=== PATIENT | female | born 1970 | race Hispanic/Latino ===

== ENCOUNTER 2020-09-05 08:28 | Outpatient (CLI) | payer OTHER ==
--- NOTE | 2020-09-26 14:32 | Magnetic Resonance Report ---
Bilateral breast MR without and with contrast. History: Patient at high risk for breast malignancy based upon genetic susceptibility. Comparison: Outside mammograms 03/14/2020 and 03/09/2019. Technique: Multiplanar multisequence MR images of the breast were obtained before and after the intra venous administration of 16 ml of Clariscan contrast agent. Post processing analysis and review was p erformed on a separate computer workstation. Findings: The breasts are composed of primarily scattered fibroglandular densities. There is mild background pa renchymal enhancement. The presence of multiple scattered bilateral enhancing foci decreases the sens itivity of MRI. No discrete enhancing mass, dominant focus, or other abnormal enhancement is identified within either breast. No abnormal axillary or internal mammary lymph nodes. Impression: No evidence of breast malignancy. Patient will be due for annual bilateral mammogram in March 2021. Recommend screening breast MRI in one year given patient's high risk for breast malignancy. BIRADS 1: Negative. A normal MRI does not exclude the presence of some forms of breast malignancy as literature reports s uggest that some forms of ductal carcinoma in situ or lobular carcinoma, particularly, may not be det ected on MRI. The sensitivity and specificity of MRI for cancers under 5 mm may be reduced. MRI does not replace the recommendation for annual conventional mammographic evaluation and should be used as an adjunct to mammography and physical examination as necessary. Signer Name: Nas Murray MD Signed: 09/26/2020 2:28 PM Workstation Name: [id number]
== END 2020-09-05 08:29 | disposition home or self-care (01) ==
LOC: SPVIMAG 08:28
PROVIDERS: ATTEND Surgery
DX: Z15.01 Genetic susceptibility to malignant neoplasm of breast (principal); Z15.02 Genetic susceptibility to malignant neoplasm of ovary; Z15.09 Genetic susceptibility to other malignant neoplasm; Z80.3 Family history of malignant neoplasm of breast
CPT/HCPCS: A9575; C8908; 77049